=== PATIENT | female | born 2000 | race Caucasian/White ===

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

== ENCOUNTER 2021-03-24 23:35 | Emergency (ER) | payer BC ==
--- NOTE | 2021-03-25 00:08 | EDM.PDOC ---
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 Omer is a very pleasant 20-year-old woman who now presents the ED stating that she is approximately 11 weeks gestation, , LMP 01/05/2021 = 11w 2d by dates, [facility] 03/25/2021, but with two obstetric ultrasounds, the first at around 8 weeks gestation, the second on 03/06/2021, which revealed 10w 5d gestation, [facility] 03/25/2021, who developed scant vaginal bleeding with minor suprapubic cramping around 22:15 this evening. She states that she has blood less than a pad. No prior bleeding with this . No urinary symptoms. No recent fever. No recent trauma. Here in the ED, the patient is found to be hemodynamically stable, afebrile, saturating 98% on room air. She appears to be comfortable, in no acute distress. Prior to this evening, the patient denies having a recent fever, chills, sore throat, ear pain, nasal or sinus congestion, cough, dyspnea, chest pain, palpitations, nausea, vomiting, constipation, diarrhea, abdominal pain, urinary symptoms, recent weight gain or weight loss, recent bloody bowel movements or black bowel movements, recent joint aches, headaches, or rashes. The patient does not have a PCP. Her package dyeing machine operator is Sabrina Martinez NP. abdomen Pain Score (Numeric/FACES): 2 - Related Data Allergies Allergy/AdvReac Type Severity Reaction Status Date / Time Sulfa (Sulfonamide Allergy Rash Verified 03/25/21 02:50 Antibiotics) Home Meds: Home Meds . 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 ED EXAM - Physical Exam Exam: See Below Exam Limited By: No Limitations General Appearance: Alert, WD/WN, No Apparent Distress Eye Exam: Bilateral Eye: EOMI, Normal Inspection Ears: Normal External Exam, Hearing Grossly Normal Nose: Normal Inspection Throat/Mouth: Normal Inspection, Normal Lips, Normal Voice, No Airway Compromise Head: Atraumatic, Normocephalic Neck: Normal Inspection, Full Range of Motion Respiratory/Chest: No Respiratory Distress, Lungs Clear, Normal Breath Sounds, No Accessory Muscle Use Cardiovascular: Normal Peripheral Pulses, Regular Rate, Rhythm, No Edema, No Gallop, No JVD, No Murmur, No Rub GI/Abdominal Exam: Normal Bowel Sounds, Soft, No Organomegaly, No Distention, No Abnormal Bruit, No Mass, Tender (Mild, suprapubic only. Nontender elsewhere.) (Female) Exam: Normal External Exam, Other (Scant amount of old-appearing dark red/brown blood in the vagina, along with some bloody mucus in a closed nulliparous cervix. No active bleeding. No vaginal lesions seen.) Back Exam: Normal Inspection, Full Range of Motion, NT Extremities: Normal Inspection, Normal Range of Motion, No Pedal Edema, Normal Capillary Refill Neurological: Alert, Oriented, Normal Cognition, No Motor/Sensory Deficits Psychiatric: Normal Affect Skin Exam: Warm, Dry, Intact, Normal Color, No Rash Course - Vital Signs Last Recorded V/S: Last Vital Signs Temp 36.3 C 03/24/21 23:48 Pulse 90 03/24/21 23:48 Resp 18 03/24/21 23:48 BP 134/81 03/24/21 23:48 Pulse Ox 98 03/24/21 23:48 - Orders/Labs/Meds Orders: Active Orders 24 hr Category Date Time Status OB 1st Tri Sgl 1st Gest [US] Stat Exams 03/25/21 00:04 Taken PATIENT RETYPE [BBK] Routine Lab 03/25/21 01:00 Ordered Labs: Laboratory Tests 03/25/21 03/25/21 03/25/21 Range/Units 00:25 00:25 00:25 WBC 8.69 (3.98-10.04) K/mm3 RBC 4.34 (3.98-5.22) M/mm3 Hgb 12.6 (11.2-15.7) gm/dl Hct 36.5 (34.1-44.9) % MCV 84.1 (79.4-94.8) fl MCH 29.0 (25.6-32.2) pg MCHC 34.5 (32.2-35.5) g/dl RDW Std Deviation 38.6 (36.4-46.3) fL Plt Count 206 (182-369) K/mm3 MPV 10.0 (9.4-12.3) fl Neutrophils % (Manual) 70 H (40-60) % Band Neutrophils % 0 (0-10) % Lymphocytes % (Manual) 24 (20-40) % Atypical Lymphs % 0 % Monocytes % (Manual) 6 (2-10) % Eosinophils % (Manual) 0 L (0.7-5.8) % Basophils % (Manual) 0 L (0.1-1.2) Platelet Estimate Adequate RBC Morph Comment Normal Sodium 141 (136-145) mEq/L Potassium 3.8 (3.5-5.1) mEq/L Chloride 106 (98-107) mEq/L Carbon Dioxide 27 (21-32) mEq/L Anion Gap 11.8 (5-15) BUN 13 (7-18) mg/dL Creatinine 0.8 (0.55-1.02) mg/dL Est Cr Clr Drug Dosing 112.21 mL/min Estimated GFR (MDRD) > 60 (>60) mL/min BUN/Creatinine Ratio 16.3 (14-18) Glucose 71 (70-99) mg/dL Calcium 8.4 L (8.5-10.1) mg/dL Total Bilirubin 0.6 (0.2-1.0) mg/dL AST 15 (15-37) U/L ALT 26 (14-59) U/L Alkaline Phosphatase 65 (46-116) U/L Total Protein 6.2 L (6.4-8.2) g/dl Albumin 3.2 L (3.4-5.0) g/dl Globulin 3.0 gm/dL Albumin/Globulin Ratio 1.1 (1-2) HCG, Quant 01281.0 mIU/mL Blood Type A POSITIVE - Re-Assessments/Exams Free Text/Narrative Re-Assessment/Exam: 03/25/21 00:06 As above, the patient is 10 weeks 5 days gestation by ultrasound dated 03/06/2021, who developed pelvic cramps and a small amount of vaginal bleeding this evening. Her physical exam is remarkable for mild lower abdominal tenderness. She will be taken to our gynecology exam room so that I can examine her cervix. In the meantime, I have ordered a work-up that includes a CBC, CMP, quantitative hCG, an ABO/Rh, and a transvaginal ultrasound. 03/25/21 00:15 On pelvic examination, the patient had a scant amount of old-appearing dark red/brown blood in the vagina, along with some bloody mucus in a closed nulliparous cervix. No active bleeding. No vaginal lesions seen. 03/25/21 01:33 The patient's CBC is unremarkable. Her CMP is unremarkable. Her quantitative hCG is 88,528. Her blood type is A-Pos. 03/25/21 02:46 Transvaginal ultrasound is read by Misti as: 1. Live intrauterine gestation, with ultrasound measurements compatible with a 10-week and 4-day gestation. 2. Small amount of fluid within the cervical os, compatible with small amount of hemorrhage or fluid. Consider close interval follow-up. 03/25/21 02:55 Test results discussed with the patient, her boyfriend, and her mother, now present (her sister is no longer present). As above, today's work-up is reassuring. I explained that bleeding during is not normal, but is fairly common. She is at a somewhat increased risk of spontaneous , but at this point, I do not believe she has anything to worry about. She may sa abby be discharged home, with the recommendation that she follow-up with her package dyeing machine operator. Departure - Departure Time of Disposition: 02:56 Disposition: Home, Self-Care 01 Condition: Good Clinical Impression: Bleeding in early - Discharge Information *PRESCRIPTION DRUG MONITORING PROGRAM REVIEWED*: Not Applicable *COPY OF PRESCRIPTION DRUG MONITORING REPORT IN PATIENT [facility]: Not Applicable Referrals: PCP,None [Primary Care Provider] - Millie Martinez NP [Ordering Only Provider] - Forms: ED Department Discharge Additional Instructions: You were seen in the emergency room after developing pelvic cramps and slight vaginal bleeding last night, while . Work-up in the ER included several blood tests and a transvaginal ultrasound. Your quantitative hCG ( hormone) is 88,528. This is consistent with your gestational age. Your blood type is A-positive. The vaginal ultrasound found a intrauterine at 10 weeks 4 days, associated with some bleeding. As discussed, bleeding during is not normal, but is fairly common. It does put you at a somewhat increased risk for having a miscarriage, however, at this time, everything looks good. We recommend that you continue to take your vitamins. You may take [id number] acetaminophen (Tylenol) as needed for discomfort. We recommend you follow-up with your package dyeing machine operator, Millie Martinez NP, at the next available appointment. If any other problems, please do not hesitate to return to the ER. Sepsis Event Note (ED) - Evaluation Sepsis Screening Result: No Definite Risk - Focused Exam Vital Signs: Vital Signs Temp Pulse Resp BP Pulse Ox 03/24/21 23:48 36.3 C 90 18 134/81 98 - My Orders Last 24 Hours: My Active Orders 03/25/21 00:04 OB 1st Tri Sgl 1st Gest [US] Stat 03/25/21 01:00 PATIENT RETYPE [BBK] Routine - Assessment/Plan Last 24 Hours: My Active Orders 03/25/21 00:04 OB 1st Tri Sgl 1st Gest [US] Stat 03/25/21 01:00 PATIENT RETYPE [BBK] Routine
--- NOTE | 2021-03-25 14:29 | US ---
First trimester obstetrical ultrasound: Multiple real-time images were obtained transabdominally. Comparison: No prior obstetrical imaging for current . Dates: Current ultrasound: [facility] 10/15/21, gestational age 10 weeks 6 days Single intrauterine gestation is seen. Small embryo is seen. Amniotic fluid volume is normal. No subchorionic hemorrhage is seen. Equivocal fluid within the endocervical canal is noted. Other portions of the canal appear unremarkable. Right and left ovaries appear within normal limits. Measurements: Sublimity-rump length: 3.87 cm - 10 weeks 6 days Heart rate: 178 bpm Impression: 1. Single intrauterine gestation. Dates as noted above. 2. Questionable fluid within the endocervical canal. Consider repeat study in 2 weeks to further evaluate. 3. No other acute abnormality is seen. Diagnostic code #3 I agree with preliminary report from [facility], finalized on 03/25/21, 3:37 AM CDT, code 1
== END 2021-03-25 03:10 | disposition home or self-care (01) ==
LOC: JD.ED 23:35
DX: O20.9 Hemorrhage in early pregnancy, unspecified (principal); Z88.2 Allergy status to sulfonamides; Z3A.11 11 weeks gestation of pregnancy
CPT/HCPCS: 36415; 76801; 76801-26; 80053; 84702; 85007; 85027; 86900; 86901; 99283; 99284-25